=== PATIENT | male | born 2000 | race Caucasian/White ===

== ENCOUNTER 2019-02-04 17:57 | Emergency (ER) | payer OTHER, SELFPAY ==
[2019-02-04 17:58] VITALS: BP 114/68; PULSE 85; RESP 16; TEMP 36.4; O2SAT 99; BMI 19.8
--- NOTE | 2019-02-04 18:01 | RAD_ITS ---
STUDY: X-RAY - RIGHT HAND REASON FOR EXAM: Male, 18 years old. Fall TECHNIQUE: 3 view(s) of the hand. COMPARISON: None. FINDINGS: There is an oblique fracture of the third metacarpal bone. There are no significant degenerative changes. There are no radiodense foreign bodies. RAD/Hand Min 3 Views IMPRESSION: Oblique fracture of the third metacarpal bone. Electronically Signed: Cornell Hall, at 18:21 EDT Tel , Service support ,
--- NOTE | 2019-02-04 18:26 | ED.VIS.GEN ---
History of Present Illness Chief Complaint: Upper Extremity Injury Narrative: Patient presenting secondary to a right hand injury. Patient states that he fell out of his truck on an outstretched hand and hyperextended his long and ring fingers when he fell. He reports that he has a moderate to severe amount of pain in his hand with swelling. Pain is worse with palpation and movement. He denies any other injuries. He is right-hand dominant. Past Medical History - Allergies and Home Meds Allergies/Adverse Reactions: Allergies No Known Allergies Allergy (Verified 02/04/19 17:57) Primary Care Physician: Dorothy Del Rio DO [STAFF PHYSICIAN] - 1-2 Weeks Past Medical History: None Smoking Status: Current every day smoker Review of Systems Musculoskeletal: Reports: - - hand pain Hematologic: Denies: Easy bruising, Easy bleeding Physical Exam Vital Signs/Narrative: Vital Signs Temp Pulse Resp BP Pulse Ox 02/04/19 17:58 97.5 F L 85 16 114/68 99 Inital Vital Signs reviewed: Yes General: Well nourished, Well developed Head: Atraumatic Eyes: EOMI Neck: Nontender Cardiovascular: Regular rate, Regular rhythm Respiratory: No distress Extremities: - - Examination of the patient's right hand shows pain with palpation of the third and fourth metacarpals with swelling in that area. Limited range of motion of the fingers secondary to pain, but normal active flexion and extension of all 5 fingers. Normal pulses normal capillary refill normal sensation. Skin: Normal color, No rash Neurological: Alert, Oriented x3 Psychological: Normal affect Diagnostic/Tx/Re-eval - Medical Decision Making Patient presented with a hand injury. X-rays demonstrated a metacarpal fracture. Patient was placed in a splint that was performed and fabricated by the ED physician as noted in the procedure note. Patient will be sent home with [place] and follow-up with orthopedics. Procedures - Upper Extremity Splints Upper Extremity Splint: Orthoglass Splint Fabrication: Fabricated Location: Right - Anterior posterior splint was placed with good capillary refill both pre-and post procedure. ED Disposition - Plan for ED Patient: Disposition: Home or Assisted Living Diagnosis: Fracture of third metacarpal bone Instructions: FRACTURE, Hand (Closed) Prescriptions: Hydrocodone Bitart/Apap 5-325 [[place] 5MG-325MG] 1 tab PO Q6H PRN PRN 5 Days #20 tab PRN Reason: Pain Prescription Printed Referrals: Dorothy Del Rio DO [STAFF PHYSICIAN] - 1-2 Weeks
[2019-02-04 19:29] VITALS: BP 118/67; PULSE 54; RESP 16; O2SAT 99
== END 2019-02-04 19:29 | disposition home or self-care (01) ==
LOC: ED 18:46
PROVIDERS: Emergency Provider Emergency Medicine
DX: S62.302A Unspecified fracture of third metacarpal bone, right hand, initial encounter for closed fracture (principal); V58.4XXA Person boarding or alighting a pick-up truck or van injured in noncollision transport accident, initial encounter; Y93.9 Activity, unspecified; Y92.9 Unspecified place or not applicable; Y99.9 Unspecified external cause status; F17.200 Nicotine dependence, unspecified, uncomplicated
CPT/HCPCS: 29125; 73130; 99282

== ENCOUNTER → 2019-02-10 10:03 | Outpatient (CLI) | payer OTHER, SELFPAY ==
[2019-02-10 09:56] VITALS: BMI 19.8
--- NOTE | 2019-02-10 10:04 | RAD_ITS ---
STUDY: X-RAY - RIGHT HAND REASON FOR EXAM: Male, 18 years old. Right hand injury 6 days ago. Fracture. TECHNIQUE: 3 view(s) of the hand. COMPARISON: 02/04/2019 radiographs. FINDINGS: Oblique fracture midshaft third metacarpal with minimal ulnar displacement of the more distal portion, not significantly changed. No other fracture is evident. Normal bony mineralization. No significant degenerative changes. RAD/Hand Min 3 Views IMPRESSION: Oblique mid shaft third metacarpal fracture not significantly changed. Electronically Signed: Dwain Pastor, at 3:32 EDT Tel , Service support ,
== END ==
PROVIDERS: Referring Provider Physician Assistant; Visit Provider Physician Assistant
DX: M79.641 Pain in right hand (principal)
CPT/HCPCS: 73130

== ENCOUNTER 2019-02-17 09:34 | Day surgery (SDC) | payer OTHER, SELFPAY ==
[2019-02-10 09:56] VITALS: BMI 19.8
[2019-02-17 10:01] VITALS: BP 113/60; PULSE 88; RESP 16; TEMP 37.2; O2SAT 100; BMI 18.3
[2019-02-17] MEDS: Lactated Ringers 1,000 ML 100 ML IV (10:12)
[2019-02-17] MEDS: Famotidine 20 MG Tablet 40 MG PO (10:38)
--- NOTE | 2019-02-17 11:00 | RAD_ITS ---
STUDY: X-RAY - RIGHT HAND REASON FOR EXAM: ORIF third metacarpal. TECHNIQUE: 2 intraoperative images of the hand. COMPARISON: Radiographs 02/10/2019. FINDINGS: There are 3 orthopedic screws transfixing a third metacarpal diaphyseal fracture in anatomical alignment and position. Electronically Signed: Stevo Bill MD at 15:26 EDT Tel , Service support , RAD/Hand Min 3 Views
--- NOTE | 2019-02-17 11:23 | HP.PCM_ITS ---
History and Physical Addendum entered and electronically signed by Dorothy Del Rio DO 02/15/19 11:15: diagnostic code is S62.302A Assessment & Plan Problems 1. Closed displaced fracture of shaft of third metacarpal bone of right hand, initial encounter S62.322A Orders Orders: Hand Min 3 Views 02/10/19 M79.641 I have re-examined the patient. There are no clinical changes since date of exam. Intake Vital Signs 02/10/19 Body Mass Index (BMI) 19.8 Intake Visit Reasons: right hand Is patient in pain?: Yes Pain scale (1-10): 1 Allergies No Known Allergies Allergy (Verified 02/04/19 17:57) PFSH Social History (Updated 02/10/19 @ 12:45 by ABIGAIL Ware) Smoking Status: Current every day smoker HPI right hand: Details: Parts of this documentation were recorded by a scribe, this documentation accurately reflects the service provided and the decisions made by me, ABIGAIL Ware 02/10/19 0935. RBAIA MCKEON is a 18 year old M NEW patient here today for f/u on 02/04/19 right hand injury at work. He states he slipped on hydraulic fluid and was carrying a gas can in the right hand when he fell. Today he presents in the splint from the ED with mild swelling in the hand, denies any numbness or tingling and states he has been working and using the right hand. Denies removing the splint at all. Ortho Exam Right Wrist/Hand Skin/Wound: Yes Swelling, Yes Ecchymosis Contralateral Normal: Yes Right Wrist: Yes ROM-Extension 0-60, ROM-Flexion 0-80, ROM-Pronation 0-80, ROM- Supination 0-90 and TTP Fracture site Sensation: Radial: I, Ulnar: I, Median: I WRIST: No acute abnormality on inspection. Patient does have some generalized swelling of the dorsum of the hand. He also has some ecchymosis and bruising on the volar surface of the hand. Evident reproducible tenderness at the fracture site. Patient does have some mild malrotation of the finger with passive motion. Patient does have intact sensation throughout the fingers/hands. He has normal capillary refill distal radial pulses. Left Wrist/Hand Skin/Wound: Yes Swelling, Yes Ecchymosis Assessment & Plan Problems 1. Closed displaced fracture of shaft of third metacarpal bone of right hand, initial encounter S62.322A Plan Patient presents for full up of right hand fracture seen in the emergency department. Radiographs were taken again today as it has been a week since original. Radiographs today show evidence spiral oblique fracture of the third metacarpal shaft. There does appear to be shortening of the metacarpal as well as some malrotation of the finger. At this time we did discussed options with patient including conservative nonoperative versus operative. Patient states that he is going to be working no matter what is on his hand. He does not wish to have a cast for 6 weeks. With radiographs showing some shortening and some malrotation with passive motion and his desire to be back as soon as possible he would like to proceed with surgical intervention. Risks and benefits of the surgery were discussed with patient and all questions were answered to his satisfaction. Surgical consent was signed in office today. We discussed surgical protocol procedure including postop rehabilitation. Patient will be contacted by anesthesia for preanesthesia testing as well as surgery department for scheduling time the day before. Patient was given antiseptic scrub to be used the night before and morning of surgery. He will be in a splint postop for 2 weeks at which time we will begin occupational therapy. All questions were answered at this time. He can notify our office if he has any further questions. This note was generated with [employer] software. It may contain incorrect words, spelling, and punctuation that were not noted in checking the note before signing. Orders Orders: Hand Min 3 Views Today M79.641 Coding Level of Care Code Off vis,new,level 3 Diagnoses Closed displaced fracture of shaft of third metacarpal bone of right hand, initial encounter S62.562A ??Encounter type: initial encounter ??Fracture type: closed ??Metacarpal location: shaft ??Fracture alignment: displaced
[2019-02-17] MEDS: Cefazolin 2 GM in 0.9% Normal Saline 100 ML IV (11:42)
--- NOTE | 2019-02-17 12:24 | DCINST_ITS ---
Discharge Diet: No Restrictions - leave dressing intact, follow up in 2 weeks for repeat xrays, call for appt Discharge Activity: May Not Drive May shower in (days): 1 Ice area for (Minutes): 20 - Every hour while awake. Weight Bearing Status: Weight bearing as tolerated Keep extremity elevated above heart level: Operative Extremity Call your doctor if your incision/area has: Continuous Slow Oozing, Sudden In creased Bleeding, Increased Pain/ Swelling, Increased Redness, Foul Smelling Discharge Call your doctor if you observe: Fever of 101 or Higher, Coldness, Increased Pain, Numbness or Tingling, Change in Color, Calf discomfort Allergies/Adverse Reactions: Allergies No Known Allergies Allergy (Verified 02/15/19 11:24) Medications to take at Discharge Hydrocodone Bitart/Apap 5-325 [[place] 5MG-325MG] 1 tab PO Q6H PRN PRN 5 Days #20 tab 02/04/19 Acetaminophen [Tylenol Extra Strength] 500 mg PO Q6H PRN PRN 02/15/19 Primary Care Physician: Care Physician,No Primary [Primary Care Provider] - Test Results: Test results from this visit will be discussed in further detail at your follow- up appointment, if applicable. Please Follow Up With: Dorothy Del Rio, DO - [phone]
--- NOTE | 2019-02-17 12:28 | PCM.OPRPT ---
Report of Operation Date of Procedure: 02/17/19 Pre-Operative Diagnosis: displaced shortened right third metacarpal fracture Post-Operative Diagnosis: sure Surgery/Procedure Performed:: orif right third metacarpal record changer assembler: Pebbles Thomson Type of Anesthesia:: General Anesthesiologist: Sulaiman Fuentes Estimated Blood Loss (mL): minimal Fluids Replaced: 1000ml lr Description of Procedure: Preop note Preop patient is a 89-year-old female injured his right hand at work. Patient seen in the clinic attempted to treat him nonoperatively however the due to shortening and displacement of his spiral fracture decision was made to undergo ORIF of his right third metacarpal. Risk benefits and alternatives were discussed with patient. Risks including but not limited to blood loss, blood clot, infection, neurovascular, failure procedure, loss of life and loss of limb. Patient is aware like proceed with right third metacarpal open reduction internal fixation pick. Operative note Patient seen and examined preoperative holding area. Right hand was marked. Patient was brought to the operating placed supine on the operating table. Sign, anesthesia, antibiotics were administered. The right arm was prepped and draped in usual sterile fashion with a tourniquet around his upper arm. Timeout was performed. We then used fluoroscopy to ascertain the level of our incision. The right arm was marked out our incision. The right arm was then elevated exsanguinated tourniquet was raised to a pressure of 250 torr. We then began with a procedure. He is a 15 blade to cut the skin dissected down tenotomies to level of the extensor tendon extensor tendon was then moved radially we dissected down to the periosteum periosteum was then elevated we did debride out the fracture site the fracture site was then reduced with combination of traction rotation and a clamp placed across the fracture site. Because of the spiral nature of the fracture we then elected to proceed with 3 Screws Crossing the spiral fracture sequentially. We did prepared and drilled and placed the screws in lag fashion. Please see chart for screw lengths. After using the 2 oh screws across fracture site we then released the clamp we had good reduction of her fracture site in multiple planes with planes we did use fluoroscopy to visualize images we then also perform a cascade of the patient's cascade was intact as well. We then irrigated the incision with copious muscle sterile saline. Incision closed the periosteum with 3-0 Vicryl subcuticular 3-0 Vicryl and the skin with running 4-0 Monocryl. Sterile dressings were applied splint was maintained to the right upper extremity. Patient tied procedure well no comp occasions tourniquet was deflated for total working time 45 minutes. Postop Pharmacy has prescriptions Nonweightbearing right upper extremity upper extremity next Follow-up in 2 weeks Call with increased pain numbness tingling further issues arise This note was generated with [employer] dictation software. It may contain incorrect words, spelling, and punctuation that were not noted in checking the note before signing.
[2019-02-17] MEDS: Bupivacaine Mpf 0.5% 30 ML VIAL (12:30)
[2019-02-17] MEDS: Mupirocin Ointment 22gm Tube 1 APPLIC (12:30)
[2019-02-17 12:50] VITALS: BP 113/60; BP 114/82; PULSE 88; RESP 16; TEMP 36.3; O2SAT 98
[2019-02-17 13:00] VITALS: BP 113/60; BP 113/81; PULSE 75; RESP 16; O2SAT 100
[2019-02-17 13:15] VITALS: BP 110/69; BP 113/60; PULSE 67; RESP 16; O2SAT 100
[2019-02-17 13:26] VITALS: BP 113/60; BP 113/80; PULSE 88; RESP 16; TEMP 36.4; O2SAT 100
[2019-02-17] MEDS: HYDROcodone Bitartrate/Apap 5/325 Tablet PO (13:42)
[2019-02-17 13:45] VITALS: BP 113/60
== END 2019-02-17 14:12 | disposition home or self-care (01) ==
LOC: SDC 09:35 → AC 09:36
PROVIDERS: Referring Provider Orthopaedic Surgery; Visit Provider Orthopaedic Surgery
PROC: (CPT 26615; principal; 2019-02-17 10:45)
DX: S62.322A Displaced fracture of shaft of third metacarpal bone, right hand, initial encounter for closed fracture (principal); W01.0XXA Fall on same level from slipping, tripping and stumbling without subsequent striking against object, initial encounter; Y93.89 Activity, other specified; Y92.89 Other specified places as the place of occurrence of the external cause; Y99.0 Civilian activity done for income or pay; K21.9 Gastro-esophageal reflux disease without esophagitis; F17.200 Nicotine dependence, unspecified, uncomplicated
CPT/HCPCS: 26615; 73130; 76000; C1713; J7120; J2405

== ENCOUNTER → 2019-03-04 09:27 | Outpatient (CLI) | payer OTHER, SELFPAY ==
[2019-02-17 10:01] VITALS: BMI 18.3
--- NOTE | 2019-03-04 09:29 | RAD_ITS ---
STUDY: X-RAY - RIGHT HAND REASON FOR EXAM: Male, 18 years old. ORIF of third metacarpal fracture TECHNIQUE: 3 view(s) of the hand. COMPARISON: 02/17/2019 FINDINGS: Patient has undergone open reduction internal fixation of a fracture in the third metacarpal. There has been progressive healing since the previous study a complete osseous union has yet to occur. Alignment at the fracture site is anatomic. No hardware complication noted. No demonstrated fracture or joint space abnormality. RAD/Hand Min 3 Views IMPRESSION: Healing surgically reduced fracture of the third metacarpal, follow-up recommended to assure complete osseous union Electronically Signed: Hernan Anguiano MD at 11:38 EDT , Service support ,
== END ==
PROVIDERS: Referring Provider Physician Assistant; Visit Provider Physician Assistant
DX: S62.302A Unspecified fracture of third metacarpal bone, right hand, initial encounter for closed fracture (principal)
CPT/HCPCS: 73130

== ENCOUNTER 2019-09-12 08:08 | Emergency (ER) | payer SELFPAY ==
[2019-03-04 09:30] VITALS: BMI 18.3
[2019-09-12 08:09] VITALS: BP 130/99; PULSE 75; RESP 16; TEMP 36.5; O2SAT 100; BMI 19.8
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
[2019-09-12] MEDS: Ondansetron 4 MG/2 ML Vial IV (08:18)
[2019-09-12] MEDS: Morphine 4 MG/ML Syringe IV (08:18)
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
[2019-09-12 09:08] VITALS: BP 131/88; PULSE 74; RESP 16; O2SAT 100
[2019-09-12] MEDS: Cefazolin 1 GM/50 ML BAG IV (09:30)
[2019-09-12] MEDS: Diphth,Pertuss(Acell),Tet Vac 0.5 ML Vial IM (09:31)
== END 2019-09-12 11:05 | disposition short-term general hospital (02) ==
PROVIDERS: Emergency Provider Emergency Medicine
DX: S06.0X9A Concussion with loss of consciousness of unspecified duration, initial encounter (principal); S60.212A Contusion of left wrist, initial encounter; S01.121A Laceration with foreign body of right eyelid and periocular area, initial encounter; S81.811A Laceration without foreign body, right lower leg, initial encounter; S01.512A Laceration without foreign body of oral cavity, initial encounter; V43.52XA Car driver injured in collision with other type car in traffic accident, initial encounter; Y93.9 Activity, unspecified; Y92.410 Unspecified street and highway as the place of occurrence of the external cause; Y99.9 Unspecified external cause status; F17.200 Nicotine dependence, unspecified, uncomplicated
CPT/HCPCS: 70450; 70486; 71045; 72125; 73110; 73564; 73590; 90715; 96365; 96375; 99285; J7030; J2405